=== PATIENT | male | born 1960 | race Caucasian/White ===

== ENCOUNTER → 2017-09-02 | Outpatient (CLI) | payer OTHER ==
[~2017-09-02] MED LIST: CELEBREX 200 M200 M1 PO; CENTRUM SILVER1 EAC4 PO; CIPROFLOXACIN500 M1 PO; CLEOCIN HCL300 MG PO; EMBEDA ER 50-21 EACH PO; FLEXERIL PO; FLOMAX0.4 MG PO; KADIAN50 MG; MOVANA300 MG PO; NORCO 5-325 TA1 EAC1 PO; PERCOCET 5-3251 EACH PO; PHENERGAN 25 MG25 M1 PO; TESTOSTERONE INJ; TORADOL 10 MG T10 MG PO; VALIUM5 MG PO; VICODIN; XANAX 1 MG TABLE1 MG PO; ZANAFLEX4 MG PO
[2017-09-02 14:11] LABS: HEMATOCRIT 54.4 % (42.0-52.0); HEMOGLOBIN 18.5 gm/dL (14.0-18.0); MCH 30.4 pg (26.0-34.0); MCV 89.4 fL (80.0-100.0); MPV 9.9 fl. (7.2-11.1); RBC 6.08 mil/uL (4.50-6.00); RDW-CV 13.6 % (10.5-14.5); WBC 7.5 thou/uL (4.0-11.0)
[2017-09-02 14:46] LABS: CALCIUM 9.4 mg/dL (8.5-10.1); CREATININE 1.1 mg/dL (0.6-1.3); POTASSIUM 4.4 mmol/L (3.5-5.1); TOTAL BILIRUBIN 0.7 mg/dL (<0.1-1.0); TOTAL PROTEIN 6.7 g/dL (6.4-8.2)
== END ==
LOC: M.LAB 13:54
PROVIDERS: Anesthesiology
DX: Z01.812 Encounter for preprocedural laboratory examination (principal)

== ENCOUNTER → 2017-09-05 | Outpatient (CLI) | payer OTHER ==
[~2017-09-05] VITALS: Ht 180.3 cm; Wt 104.3 kg
[2017-09-05 09:24] VITALS: BP 128/65
[2017-09-05 10:14] VITALS: BP 143/85
[2017-09-05 10:25] VITALS: BP 134/86
[2017-09-05 10:40] VITALS: BP 137/77
--- NOTE | 2017-09-05 10:45 | NUR ---
0915:PT. ARRIVED, MADE COMFORTABLE IN RECLINER. DISCUSSED PHLEBOTOMIES THAT PT. HAS HAD IN THE PAST, UPDATED HIS HEALTH HISTORY, AND TALKED ABOUT TODAY'S PLAN OF CARE. 0942: #18 GAUGE IV STARTED IN RT AC BY MICHEAL MUÑIZ RN-NO J LOOP USED- THIS RN ATTACHED TUBING AND PHLEBOTOMY BAG TO PT. IMMEDIATLEY-ALSO WITH 3 WAY STOPCOCK APPLIED (NS ATTACHED TO 3RD PORT). BLOOD FLOWING STEADILY INTO BAG. 0950:HAVING PT. SQUEEZE BALL RT HAND AND PERIODICALLY APPLYING TOURNIQUET OR BP CUFF PRN TO KEEP FLOW OF BLOOD COMING OUT STEADILY. PT. DID STATE AT THIS TIME HE FEELS SLIGHLTY NAUSEATED. SALTINE CRACKERS AND WATER GIVEN. 1000:NAUSEA A LITTLE LESS NOW. 1006:PHELBOTOMY COMPLETE, PULLING OFF 500 GRAMS OF BLOOD. PT. STILL SLIGHTLY NAUSEATED AND A LITTLE DIZZY. WILL MONITOR PT. HE CONTINUES TO TAKE SIPS OF WATER AND EAT CRACKERS. 1030:HH DRAWN OFF PERIPHERAL IV SITE RT. AC. PT. IS FEELING BETTER NOW- "JUST FEEL A LITTLE LIGHTHEADED", WILL CONTINUE TO ALLOW PT. TO REST IN RECLINER. VSS. 1045:PT. WANTS TO GO AND IS FEELING BETTER. ENCOURAGED HIM TO FOLLOW CARE NOTES INSTRUCTIONS RE:POST PHLEBOTOMY THAT WERE GIVEN--REST, DRINK EXTRA FLUIDS TODAY AND CALL IF ANY WORSENING DIZZINESS, ETC.-HE VOICED UNDERSTANDING. THIS RN AMBULATED WITH PT. TO FRONT ENTRANCE, PT. WITH STEADY GAIT AND HE AMBULATED TO HIS CAR.
[2017-09-05 12:33] LABS: HEMATOCRIT 53.4 % (42.0-52.0)
== END ==
LOC: M.INFUS 09:12
PROVIDERS: Nurse Practitioner Family
DX: D75.1 Secondary polycythemia (principal)

== ENCOUNTER → 2017-09-12 | Outpatient (CLI) | payer OTHER | LOC: M.CT 11:18 | DX: Z13.6 Encounter for screening for cardiovascular disorders (principal) ==

== ENCOUNTER → 2019-07-30 | Outpatient (CLI) | payer BC ==
[2019-07-30 12:02] VITALS: BP 125/73
[2019-07-30 12:40] VITALS: BP 117/66
[2019-07-30 12:52] LABS: HEMATOCRIT 52.7 % (42.0-52.0); HEMOGLOBIN 18.2 gm/dL (14.0-18.0)
--- NOTE | 2019-07-30 13:14 | NUR ---
ARRIVED AMBULATORY. MADE SELF COMFORTABLE. DENIES ADVERSE REACTION TO PRIOR PHLEBOTOMY. PROCEDURE COMPLETED AND TOELRATED WELL. DENIES QUESTION OR NEED AT DISCHARGE.
== END ==
LOC: M.INFUS 11:58
PROVIDERS: Nurse Practitioner Family
DX: D75.1 Secondary polycythemia (principal)

== ENCOUNTER → 2019-10-15 | Outpatient (CLI) | payer BC ==
[2019-10-15 13:15] VITALS: BP 123/75
[2019-10-15 13:58] VITALS: BP 125/78
[2019-10-15 14:10] LABS: HEMATOCRIT 54.9 % (42.0-52.0); HEMOGLOBIN 19.2 gm/dL (14.0-18.0)
== END ==
LOC: M.INFUS 13:10
PROVIDERS: Nurse Practitioner Family
DX: D75.1 Secondary polycythemia (principal)

== ENCOUNTER 2020-03-07 09:53 | Emergency (ER) | payer BC ==
[~2020-03-07] VITALS: Ht 180.3 cm; Wt 102.1 kg
[2020-03-07 11:08] LABS: ABSOLUTE LYMPHOCYTES 0.5 thou/uL (0.8-5.3); ABSOLUTE MONOCYTES 0.3 thou/uL (0.0-1.2); ABSOLUTE NEUTROPHILS 2.3 thou/uL (1.6-8.1); BASOPHILS 0.7 %; EOSINOPHILS 0.3 %; HEMOGLOBIN 17.8 gm/dL (14.0-18.0); LYMPHOCYTES 16.2 %; MCH 29.7 pg (26.0-34.0); MCHC 34.3 g/dL (28.0-37.0); MCV 86.6 fL (80.0-100.0); MONOCYTES 8.3 %; MPV 9.1 fl. (7.2-11.1); NUCLEATED RBCS 0 /100WBC; PLATELET COUNT* 93 thou/uL (150-400); POLYS 74.5 %
[2020-03-07 11:21] LABS: CALCIUM 8.6 mg/dL (8.5-10.1); CREATININE 1.1 mg/dL (0.6-1.3); POTASSIUM 3.6 mmol/L (3.5-5.1)
[2020-03-07 11:26] LABS: ALBUMIN 3.2 g/dL (3.4-5.0); TOTAL BILIRUBIN 0.7 mg/dL (<0.1-1.0)
[2020-03-07 11:57] VITALS: BP 135/87
--- NOTE | 2020-03-07 14:30 | EKG ---
[place] [address] ELECTROCARDIOGRAM REPORT Name: SCOTT LEIGH Room: [facility]#: [id number] Admission: 03/07/20 Attend Phys: Discharge: 03/07/20 Date of : 64 Date of Service: 03/07/20 1023 Report #: [id number] THIS REPORT FOR: //name// [facility] ED Test Date: 2020-03-07 Test Time: 10:23:39 Pat Name: SCOTT LEIGH Department: Room: Gender: Limo Driver: [facility] : 1960 Requested By: Balbir Petersen Order Number: [id number] MD: Jeronimo Snow Measurements Intervals [place] Rate: 76 P: 56 [place]: 154 QRS: 62 QRSD: 106 T: 8 QT: 350 QTc: 394 Interpretive Statements Sinus rhythm Compared to ECG 06/15/2015 20:51:32 No significant changes Electronically Signed On 03-07-2020 14:30:38 CDT by Jeronimo Snow [email or web address] <ELECTRONICALLY SIGNED> By: Jeronimo Snow MD, [facility] 03/07/20 1430 1023 1023 Jeronimo Snow MD, FACC /EPI
== END 2020-03-07 11:58 | disposition home or self-care (01) ==
LOC: M.ERS 09:53
PROVIDERS: Emergency Medicine Emergency Medical Services
DX: U07.1 COVID-19 (principal); Z96.642 Presence of left artificial hip joint; Z87.442 Personal history of urinary calculi; Z85.828 Personal history of other malignant neoplasm of skin

== ENCOUNTER 2020-03-11 04:22 | Inpatient (IN) | payer BC ==
[2020-03-11] VITALS (13 sets, daily range): BP systolic 115–172; BP diastolic 66–101
[~2020-03-11] VITALS: Ht 180.3 cm; Wt 100.1 kg
[~2020-03-11 04:22] MED LIST changes: -EMBEDA ER 50-21 EACH PO; +MORPHINE PO; +NALTREXONE PO; -NORCO 5-325 TA1 EAC1 PO; +NORCO 5-325 TA1 EAC2 PO
[2020-03-11 05:05] LABS: HEMATOCRIT 55.5 % (42.0-52.0); HEMOGLOBIN 18.8 gm/dL (14.0-18.0); MCH 29.2 pg (26.0-34.0); MCHC 33.9 g/dL (28.0-37.0); MCV 86.2 fL (80.0-100.0); MPV 8.6 fl. (7.2-11.1); NUCLEATED RBCS 0 /100WBC; PLATELET COUNT* 129 thou/uL (150-400); RBC 6.44 mil/uL (4.50-6.00); RDW-CV 13.9 % (10.5-14.5); WBC 7.7 thou/uL (4.0-11.0)
[2020-03-11 05:15] LABS: CALCIUM 8.3 mg/dL (8.5-10.1); CREATININE 0.9 mg/dL (0.6-1.3); POTASSIUM 3.9 mmol/L (3.5-5.1)
[2020-03-11 05:17] LABS: APTT 26.7 Seconds (25.0-31.3); INR 1.1; PROTIME 11.4 Seconds (9.20-11.50)
[2020-03-11 05:25] LABS: ALBUMIN 2.7 g/dL (3.4-5.0); TOTAL BILIRUBIN 1.2 mg/dL (<0.1-1.0); TOTAL PROTEIN 6.9 g/dL (6.4-8.2)
[2020-03-11 06:59] LABS: ABSOLUTE EOSINOPHILS 0.2 thou/uL (0.0-0.7); ABSOLUTE LYMPHOCYTES 0.5 thou/uL (0.8-5.3); ABSOLUTE MONOCYTES 0.5 thou/uL (0.0-1.2); ABSOLUTE NEUTROPHILS 6.5 thou/uL (1.6-8.1); PLATELET ESTIMATE ADEQUATE
--- NOTE | 2020-03-11 08:45 | NUR ---
PT'S ADMITING STATUS HAS CHANGED FROM TELE TO ICU. PT NOW WAITING FOR AVAILABLE ICU BED.
--- NOTE | 2020-03-11 09:00 | NUR ---
GINGER LEIGH, PT'S [phone]
--- NOTE | 2020-03-11 18:59 | NUR ---
DR RICHMOND NOTIFIED OF CONSULT. SEE ORDERS. WILL DO ROUNDS AT 2100. Norman PARIKH RN
[2020-03-11 19:40] LABS: BE -2.8 mmol/L (-2 to +3); PCO2 37.5 mmHg (35.0-45.0); PO2 61.8 mmHg (75.0-100.0)
--- NOTE | 2020-03-11 19:43 | NUR ---
END OF SHIFT NOTE: PT UP TO COMMODE X2 TO URINATE. UNABLE TO VOID AT THIS TIME. PT REPORTS HAS ALWAYS HAD TROUBLES W/ STARTING STREAM. HR 130'S AND O2 SAT DECREASED TO LOW 80'S WHEN UP TO COMMODE. A&O X4 BUT OCCASIONALLY FORGETFUL. HI SOFIA O2 INCREASED TO 10L WHILE UP TO COMMODE. LS COARSE/DIM. DENIES COUGH. SR WHEN AT REST. ST WHEN ANXIOUS AND W/ ACTIVITY. DID VOID IN ED PER REPORT. SMALL BM. REFUSING TO EAT. POOR PO INTAKE. ATTEMPTED TO OBTAIN IV ACCESS W/ 2 UNSUCCESSFUL ATTEMPTS. PT REQUEST TO "WAIT UNTIL LATER" FOR FURTHER ATTEMPTS. JLOOP PLACED ON LAC PIV. NS @ 100ML/HR. REFUSING SCDS. WASHED FACE. REFUSING MOUTH SWABS AND TO BRUSH TEETH. UPDATE VERBALIZED TO , GINGER. BED ALARM ON. Norman PARIKH RN.
[2020-03-12] VITALS (25 sets, daily range): BP systolic 100–129; BP diastolic 55–79
[2020-03-12 05:32] LABS: BE 0.1 mmol/L (-2 to +3); PCO2 41.1 mmHg (35.0-45.0); PO2 67.2 mmHg (75.0-100.0); pH 7.401 (7.340-7.450)
--- NOTE | 2020-03-12 05:32 | NUR ---
PT. PROGRESSING TOWARDS GOALS. GOULD CATHETER INSERTED THIS SHIFT. PT. SLEPT WELL AFTER ADMINISTRATION OF MEDICATIONS (SEE MAR) . WILL CONTINUE TO MONITOR.
[2020-03-12 08:39] LABS: MCH 29.2 pg (26.0-34.0); MCHC 33.9 g/dL (28.0-37.0); MCV 86.1 fL (80.0-100.0); RBC 5.7 mil/uL (4.50-6.00); RDW-CV 13.9 % (10.5-14.5); WBC 9.5 thou/uL (4.0-11.0)
[2020-03-12 08:42] LABS: HEMOGLOBIN 16.6 gm/dL (14.0-18.0)
[2020-03-12 08:51] LABS: CREATININE 0.9 mg/dL (0.6-1.3)
--- NOTE | 2020-03-12 12:12 | EKG ---
[place] [address] ELECTROCARDIOGRAM REPORT Name: SCOTT LEIGH Room: [address] .R.#: [id number] Admission: 03/11/20 Attend Phys: Rahel Prabhakar, Discharge: Date of : 64 Date of Service: 03/11/20 0428 Report #: [id number] THIS REPORT FOR: //name// [facility] ED Test Date: 2020-03-11 Test Time: 04:28:07 Pat Name: SCOTT LEIGH Department: Room: [facility] Gender: M Vessel Operator: : 1960 Requested By: Grzegorz Barnes Order Number: [id number] MD: Rolando Smith Measurements Intervals [place] Rate: 119 P: 55 [place]: 134 QRS: 92 QRSD: 102 T: -3 QT: 316 QTc: 445 Interpretive Statements Sinus tachycardia LAE, consider biatrial enlargement Borderline right axis deviation Borderline repolarization abnormality Baseline wander in lead(s) II,III,aVF,V1 Compared to ECG 03/07/2020 10:23:39 Sinus rhythm no longer present Electronically Signed On 03-12-2020 12:12:34 CDT by Rolando Smith [email or web address] <ELECTRONICALLY SIGNED> By: Agata Smith MD, FACC 03/12/20 1212 7 7 Agata Smith MD, [facility] /EPI
--- NOTE | 2020-03-12 13:00 | NUR ---
PT ANXIOUS AND TEARFUL "I AM GOING TO ". REASSURED PT THAT HE IS BEING MONITORED IN ICU AND IS A FULL CODE. PT STATES HE WILL WEAR BIPAP IS ANXIETY MEDS ARE GIVEN. ORDER FOR PRECEDEX GTT
--- NOTE | 2020-03-12 16:35 | NUR ---
RECEIVED MULTIPLE PHONE CALLS FROM SONS AND TODAY RE PT STATUS. UPDATED ON PLAN OF CARE. INSTRUCTED FAMILY TO DESIGNATE ONE PERSON TO CALL A DOZEN PHONE CALLS TAKE TIME FROM PT CARE. PT HAS PHONE AT BS. REINSTRUCTED NO VISITORS PT IS COVID POSITIVE. AND SON ALSO HAVE COVID.DISCUSSED [facility] RECCOMMENDATION OF QUARANTINE
--- NOTE | 2020-03-12 16:45 | NUR ---
PT RESTING IN BED. O2 SATS IN LOW 90S ON 10 HFC. BIPAP APPLIED THIS EVENING.PT ANXIOUS AND TEARFUL MOST OF SHIFT. PT INSTRUCTED ON NONMEDICINAL WAYS TO HELP ANXIETY. IVF CHANGED TO CLIMIMEX THIS AFTERNOON PT HAS POOR APPETITE. PO FLUIDS ENCOURAGED. ENCOURAGED PT TO HOLD OWN CUP AND PUSH CONTROLS ON HIS BED HE STATES HE IS UNABLE TO. ADEQUATE UO,DARK YELLOW URINE. PT REPOSTIIONS SELF WELL. PRECEDEX GTT STARTED THIS EVENING TO HELP WITH ANXIETY AND ALLOW BIPAP
[2020-03-12 16:47] LABS: URINE BILIRUBIN NEGATIVE (Negative); URINE BLOOD 3+ (Negative); URINE CLARITY CLEAR; URINE COLOR YELLOW; URINE GLUCOSE-RANDOM NEGATIVE (Negative); URINE KETONES 2+ (Negative); URINE LEUKOCYTES TRACE (Negative); URINE NITRITE NEGATIVE (Negative); URINE PROTEIN TRACE (Negative); URINE SPECIFIC GRAVITY 1.025 (1.005-1.030)
[2020-03-12 16:54] LABS: URINE RBC >20 Many /HPF (0-2); URINE WBC 0-5 Rare /HPF (0-5)
[2020-03-12 16:55] LABS: CASTS None Seen /LPF (None Seen); CRYSTALS None Seen /LPF (None Seen); SQUAMOUS NONE SEEN /LPF (0-3)
[2020-03-12 16:56] LABS: BACTERIA None Seen /HPF (None Seen); MUCUS None Seen strn/LPF (None Seen)
[2020-03-13] VITALS (16 sets, daily range): BP systolic 98–123; BP diastolic 55–78
--- NOTE | 2020-03-13 06:26 | NUR ---
ASSUMED PATIENT CARE AT 1900. PATIENT ALERT AND ORIENTED TIMES FOUR. PLACED ON BIPAP AT APPROX 2130 PATIENT WAS BREATHING BETWEEN 35-45 BPM AND O2 SATS WERE 87-88%. PATIENT ABLE TO TOLERATE BIPAP AND SLEPT WELL THROUGH T HE NIGHT. MINOR COMPLAINTS OF PAIN, CONTROLLED WITH ORAL PAIN MEDICATIONS. REMAINS IN COVID PRECAUTIONS. GOULD IN PLACE. RN ASSESSMENTS COMPLETED DOCUMENTED.
[2020-03-13 12:41] LABS: ABSOLUTE BASOPHILS 0.1 thou/uL (0.0-0.2); ABSOLUTE LYMPHOCYTES 0.5 thou/uL (0.8-5.3); ABSOLUTE MONOCYTES 0.5 thou/uL (0.0-1.2); ABSOLUTE NEUTROPHILS 8.3 thou/uL (1.6-8.1); BASOPHILS 1.4 %; EOSINOPHILS 0.1 %; HEMATOCRIT 47.8 % (42.0-52.0); HEMOGLOBIN 16.1 gm/dL (14.0-18.0); LYMPHOCYTES 5.1 %; MCH 29.5 pg (26.0-34.0); MCHC 33.8 g/dL (28.0-37.0); MCV 87.4 fL (80.0-100.0); MPV 9.2 fl. (7.2-11.1); NUCLEATED RBCS 0 /100WBC; PLATELET COUNT* 143 thou/uL (150-400); POLYS 88.4 %; RBC 5.47 mil/uL (4.50-6.00); RDW-CV 13.8 % (10.5-14.5); WBC 9.4 thou/uL (4.0-11.0)
--- NOTE | 2020-03-13 12:49 | NUR ---
THIS RN VERBALIZED UPDATE TO BOTH , GINGER, AND SON, FRANCISCO, VIA PHONE THIS AM. BOTH AND SON VERBALIZED UNDERSTANDING AND DENIED FURTHER QUESTIONS. Norman PARIKH RN
[2020-03-13 12:55] LABS: ALBUMIN 2.4 g/dL (3.4-5.0); CALCIUM 7.9 mg/dL (8.5-10.1); CREATININE 0.8 mg/dL (0.6-1.3); MAGNESIUM 2.3 mg/dL (1.8-2.4); PHOSPHORUS* 2.4 mg/dL (2.5-4.9); POTASSIUM 3.9 mmol/L (3.5-5.1); TOTAL BILIRUBIN 0.7 mg/dL (<0.1-1.0); TOTAL PROTEIN 6.1 g/dL (6.4-8.2)
--- NOTE | 2020-03-13 13:16 | NUR ---
ICU rounds: Covid positive since 03/07. On bipap. Precedex gtt. Pt resides at home with his , normally active and independent. No DME. No hx of HH or SNF. Following.
[2020-03-14] VITALS (18 sets, daily range): BP systolic 114–144; BP diastolic 58–83
--- NOTE | 2020-03-14 01:44 | NUR ---
PT. CATHETER NOT DRAINING. ATTEMPT TO IRRIGATE, UNABLE TO IRRIGATE. GOULD CATHETER DC'D, REPLACED WITH 18 LIBYAN WITH NO DIFFICULTY. DRAINING ADEQUATE AMOUNT OF URINE AT THIS TIME.
--- NOTE | 2020-03-14 04:45 | NUR ---
PT. REMAINS STABLE AT THIS TIME. BRADYCARDIC WHEN SLEEPING, PRECEDEX GTT REMAINS UNCHANGED. PT. HAD 2 EPISODES OF DIARRHEA, CDIFF ORDER OBTAINED AND STOOL SAMPLE SENT TO LAB. REMAINS COVID ISOLATION. PT. VERY CONCERNED THAT HE IS NOT IMPROVING. REASSURANCE GIVEN. WILL CONTINUE TO MONITOR.
[2020-03-14 05:58] LABS: HEMATOCRIT 52.1 % (42.0-52.0); HEMOGLOBIN 17.4 gm/dL (14.0-18.0); MCH 29.3 pg (26.0-34.0); MCHC 33.4 g/dL (28.0-37.0); MCV 87.7 fL (80.0-100.0); MPV 9.7 fl. (7.2-11.1); NUCLEATED RBCS 0 /100WBC; PLATELET COUNT* 152 thou/uL (150-400); RBC 5.94 mil/uL (4.50-6.00); RDW-CV 14.1 % (10.5-14.5); WBC 10.1 thou/uL (4.0-11.0)
[2020-03-14 06:15] LABS: PREALBUMIN 18.3 mg/dL (18.0-35.7)
[2020-03-14 06:17] LABS: ALBUMIN 2.6 g/dL (3.4-5.0); CALCIUM 8.2 mg/dL (8.5-10.1); POTASSIUM 3.7 mmol/L (3.5-5.1); TOTAL BILIRUBIN 1.1 mg/dL (<0.1-1.0); TOTAL PROTEIN 6.6 g/dL (6.4-8.2)
[2020-03-14 06:24] LABS: ABSOLUTE LYMPHOCYTES 0.7 thou/uL (0.8-5.3); ABSOLUTE MONOCYTES 0.4 thou/uL (0.0-1.2); PLATELET ESTIMATE ADEQUATE
[2020-03-14 06:25] LABS: ANISOCYTOSIS 1+; LARGE PLATELETS OCCASIONAL; POIKILOCYTOSIS 1+
--- NOTE | 2020-03-14 09:57 | NUR ---
RIGHT BASILIC VESSEL ACCESSED FOR 5 PARAGUAYAN TRIPLE LUMEN PICC. LINE PRE-TRIMMED TO 41CM AND ADVANCED TO THE ZERO CHRISTOPHER WITH NO RESISTANCE MET. UPPER ARM CIRCUMFERENCE ABOVE INSERTION SITE= 13 1/2". SHERLOCK MAGNET AND 3CG CONFIRMATION OF TIP TERMINATION AT THE CAVOATRIAL JUNCTION APPRECIATED. GUIDEWIRE REMOVED, LINE FLUSHED AND INSERTION SITE DRESSED. REPORT GIVEN TO HAN DANG.
--- NOTE | 2020-03-14 14:45 | NUR ---
ICU rounds: bipap prn. IVabx and steroids. DC salcedo. Precedex. covid positive.
--- NOTE | 2020-03-14 16:27 | NUR ---
PT UP TO BSC FOR BM. BIPAP REMAINED ON W/ SAME SETTINGS. X1 SM WATERY STOOL. WHILE SITTING ON COMMODE ASSISTED PT W/ WASHING UNDERARMS, JIL AREA, BUTTOCK, BACK, AND HANDS W/ SOAP AND WATER. BED PAD CHANGED. MEPILEX TO COCCYX. REFUSED LOTION AND DEODERANT. REFUSED WASHING OF HAIR AND SHAVE. ALSO REFUSED TO CHANGE SOCKS. PT TOLERATED TRANSFER AND SITTING ON COMMODE WELL W/O DESATURATION. WHEN BACK IN BED TRANSITIONED PT TO [facility] NC W/ HUMIDITY PER PT REQUEST. TOLERATING WELL AT THIS TIME. RR 16 AND O2 SAT 94%. Norman PARIKH RN
--- NOTE | 2020-03-14 18:56 | NUR ---
PT CURRENTLY SITTING UP IN BED W/ EYES CLOSED. REMAINS ON NC. TOLERATING WELL. INCREASED PRECEDEX TO 0.5 WHEN PT C/O ANXIETY. REMAINS A&OX4. MORE AWAKE T/O DAY. SR-SB ON MONITOR W/ OCC PACS AND PVCS. GENERALIZED EDEMA. +2 PULSES. LS DIMIN. COUGH PRODUCTIVE W/ SMALL AMOUNT THICK RUST COLORED SPUTUM. BIPAP ON SAME SETTINGS. 12L VIA NC WHEN OFF OF BIPAP. POOR APPETITE. DID DRINK ENSURE FOR LUNCH. REFUSING TO EAT. ORAL CARE-SWAB AND MOISTURIZER. TAKING PO FLUIDS WELL. PICC PLACED THIS AM BY IV NURSE. ALL PORTS FLUSHING W/ BLOOD RETURN. CONT D5W W/ 30MEQ KCL AND PRECEDEX. MULTIPLE UPDATES GIVEN TO VIA PHONE. Norman PARIKH RN
[2020-03-14 20:30] LABS: CALCIUM 7.8 mg/dL (8.5-10.1); MAGNESIUM 2.1 mg/dL (1.8-2.4); POTASSIUM 3.5 mmol/L (3.5-5.1)
[2020-03-15] VITALS (20 sets, daily range): BP systolic 103–142; BP diastolic 55–81
--- NOTE | 2020-03-15 02:47 | NUR ---
PATIENT HAS BEEN ANXIOUS THIS SHIFT ABOUT HIS BREATHING AND IS CONCERNED HE IS NOT IMPROVING. PATIENT IS NOW REFUSING TO WEAR THE BIPAP BELIEVING WHEN HE GOES ON, IT MEANS HE IS GETTING WORSE AND "IS GOING TO ". PATIENT REASSURED AGAINST THIS LINE OF THINKING, BUT STILL REFUSES TO WEAR BIPAP. PRECEDEX UP TO 0.8 MCG/KG. PATIENT BRADYCARDIC WHILE SLEEPING
[2020-03-15 04:35] LABS: ABSOLUTE BASOPHILS 0.1 thou/uL (0.0-0.2); ABSOLUTE LYMPHOCYTES 0.5 thou/uL (0.8-5.3); ABSOLUTE MONOCYTES 0.4 thou/uL (0.0-1.2); ABSOLUTE NEUTROPHILS 8.6 thou/uL (1.6-8.1); BASOPHILS 1.1 %; HEMATOCRIT 49.3 % (42.0-52.0); HEMOGLOBIN 16.5 gm/dL (14.0-18.0); LYMPHOCYTES 5.6 %; MCH 29.3 pg (26.0-34.0); MCHC 33.5 g/dL (28.0-37.0); MCV 87.2 fL (80.0-100.0); MPV 9.6 fl. (7.2-11.1); NUCLEATED RBCS 0 /100WBC; PLATELET COUNT* 138 thou/uL (150-400); POLYS 89.3 %; RBC 5.65 mil/uL (4.50-6.00); RDW-CV 13.9 % (10.5-14.5); WBC 9.6 thou/uL (4.0-11.0)
[2020-03-15 04:58] LABS: ALBUMIN 2.5 g/dL (3.4-5.0); CALCIUM 7.4 mg/dL (8.5-10.1); CREATININE 0.9 mg/dL (0.6-1.3); TOTAL BILIRUBIN 0.9 mg/dL (<0.1-1.0); TOTAL PROTEIN 5.9 g/dL (6.4-8.2)
--- NOTE | 2020-03-15 06:34 | NUR ---
ASSESSMENTS CHARTED. PATIENT REFUSING TO WEAR BIPAP FOR OXYGEN SUPPORT OVERNIGHT. REMAINS ANXIOUS ABOUT HIS CURRENT SITUATION. PRECEDEX TITRATED TO 0.7 MCG/KG. SEE TITRATION RECORD. UNABLE TO INCREASE FURTHER WITHOUT SIGNIFICANT DECREASE IN PATIENT'S HEART RATE. PATIENT STILL EXPERIENCING DIARRHEA. NO APPETITE BUT IS DRINKING WATER REGULARLY.
--- NOTE | 2020-03-15 14:57 | NUR ---
ICU rounds: Covid positive. On bipap. Up and out of bed, got cleaned up today.
[2020-03-15 18:27] LABS: CALCIUM 7.8 mg/dL (8.5-10.1); POTASSIUM 3.3 mmol/L (3.5-5.1)
--- NOTE | 2020-03-15 19:30 | NUR ---
LATE ENTRY: [id number] PT CURRENTLY LYING IN BED W/ EYES CLOSED W/ BIPAP ON. BIPAP SWITCHED TO AVAPS MODE @ 50% FIO2 BY RT THIS AFTERNOON. PT W/ INCREASED ANXIETY T/O DAY. CONCERNED ABOUT RESPIRATORY STATUS, REFUSING TO WEAR BIPAP AT TIMES, TEARFUL, AND REPORTS FRUSTRATION. THIS RN REASSURED PT MULTIPLE TIMES, VERBALIZED EDUCATON R/T BUT NOT LIMITED TO DZ PROCESS, BIPAP, MEDICATIONS, POC, PAIN TX, AND NONPHARMACOLOGICAL ALTERNATIVES FOR TX OF ANXIETY. PT REFUSES ALL OPTIONS OFFERED. STATED "I JUST CAN'T MOVE TODAY. I FEEL LIKE I'M DYING." O2 SAT AND RR REMAINED APPROPRIATE UNTIL AFTER TALKING ON PHONE W/ PRIOR TO RT TX. RR 30'S WHILE ON BIPAP. SAT 90'S. RT AWARE. SR ON MONITOR. EDEMA IMPROVED AFTER LASIX AND ALDACTONE DOSE. LS COARSE/DIM. ENCOURAGED IS-PT REFUSED. PRODUCING SMALL AMNT OF THICK RUST COLORED SPUTUM. REFUSED ORAL CARE T/O SHIFT-OFFERED MULTIPLE TIMES. GOULD TO D/D. CLEAR YELLOW URINE. SM WATERY STOOL THIS AM. REFUSED TO EAT ALL MEALS AND REFUSED ENSURE AND SNACKS WHEN OFFERED. ABLE TO DRINK WATER W/O DIFFICULTY. DENIES NAUSEA. REFUSED BATH BUT AGREEABLE TO JIL/CATHETER CARE. REFUSED TO CHANGE SOCKS AND ALL OTHER ADL'S/HYGIENE INTERVENTIONS. PRECEDEX INCREASED TO 0.9MCG/KG/HR. PRN HYDROCODONE ADMIN X1. UPDATE TO VIA PHONE X2. INFORMED TO FAX SHORT TERM DISABILITY FORMS TO UNIT FOR PRIMARY DR. Norman PARIKH, RN
[2020-03-16] VITALS (20 sets, daily range): BP systolic 100–151; BP diastolic 49–73
[2020-03-16 06:57] LABS: CREATININE 0.9 mg/dL (0.6-1.3); POTASSIUM 4.1 mmol/L (3.5-5.1)
--- NOTE | 2020-03-16 16:11 | NUR ---
ICU rounds: Covid positive. Bipap at NOC and Prn. On 8L, continue to wean. Precedex.
[2020-03-17] VITALS (19 sets, daily range): BP systolic 100–147; BP diastolic 43–74
[2020-03-17 06:40] LABS: HEMATOCRIT 51.2 % (42.0-52.0); HEMOGLOBIN 17.1 gm/dL (14.0-18.0); MCH 29.2 pg (26.0-34.0); MCHC 33.4 g/dL (28.0-37.0); MCV 87.7 fL (80.0-100.0); MPV 9.9 fl. (7.2-11.1); NUCLEATED RBCS 0 /100WBC; PLATELET COUNT* 130 thou/uL (150-400); RBC 5.84 mil/uL (4.50-6.00); RDW-CV 14.1 % (10.5-14.5)
[2020-03-17 06:49] LABS: ALBUMIN 2.3 g/dL (3.4-5.0); CALCIUM 8.2 mg/dL (8.5-10.1); MAGNESIUM 1.8 mg/dL (1.8-2.4); POTASSIUM 4.1 mmol/L (3.5-5.1); TOTAL BILIRUBIN 1.2 mg/dL (<0.1-1.0); TOTAL PROTEIN 5.8 g/dL (6.4-8.2)
[2020-03-17 07:42] LABS: ABSOLUTE MONOCYTES 0.4 thou/uL (0.0-1.2); ABSOLUTE NEUTROPHILS 9.6 thou/uL (1.6-8.1); PLATELET ESTIMATE ADEQUATE
--- NOTE | 2020-03-17 15:46 | NUR ---
ICU rounds: Tele status. Down to 15L HF NC. Improving.
[2020-03-17 16:18] LABS: APTT 26.2 Seconds (25.0-31.3); INR 1.1; PROTIME 11.4 Seconds (9.20-11.50)
--- NOTE | 2020-03-17 20:15 | NUR ---
A/OX4, OFTEN ANXIOUS. VSS. HGB >92% ON 15L HFNC, DESATS TO 88-90% WITH ACTIVITY. CTA TODAY SHOWED MULTIPLE PEs, DR SALAS AND JEOVANNY NOTIFIED. INCREASED LOVENOX GIVEN PER ORDERS. DR SALAS REQUESTED AGGRESSIVE TITRATION OFF PRECEDEX IF TOLERATED, SUPPLEMENTED WITH PRN XANAX. PRECEDEX OFF @ 1630. INCONTINENT OF LARGE LIQUID STOOL. COMPLETE BED BATH GIVEN, HAIR SHAMPOOED. PT UP TO CHAIR X2 TODAY FOR TOTAL OF 5.5 HOURS. UP TO BSC SEVERAL TIMES WITH LOOSE BMS, PRN IMMODIUM GIVEN ORDERED. DIFFICULTY EATING FOODS DUE TO RAW/DRY THROAT, PT INCREASES NUTRITION INTAKE VIA ENSURE SHAKES (2 TODAY) AND ENSURE PUDDING (4 TODAY). INTERMITTENT NAUSEA TREATED WITH ZOFRAN ORDERED. CALL LIGHT WITHIN REACH.
[2020-03-18] VITALS: BP 136/70
[2020-03-18 01:02] VITALS: BP 146/86
--- NOTE | 2020-03-18 03:30 | NUR ---
REPORT GIVEN TO LAURENCE HOLCOMB FOR CONTINUED CARE. PATIENT TO RM 232 ACCOMPANIED BY RN AND ON 15L O2 HIGH FLOW.
[2020-03-18 04:00] VITALS: BP 132/72
--- NOTE | 2020-03-18 04:18 | NUR ---
PT TRANSFERRED FROM ICU TO 232 @ ABOUT 0335. PT ALERT AND ORIENTED. VSS ON 15L HFNC. PT VOICED SOME ANXIETY. ORIENTED TO RM AND CALL LIGHT. ZOSYN CURRENTLY INFUSING. BRITTON PICC TRIPPLE LUMEN. FALL PRECAUTION IN PLACE. COVID-19 ISOLATION. WILL CONTINUE TO MONITOR.
[2020-03-18 05:48] LABS: ABSOLUTE LYMPHOCYTES 0.5 thou/uL (0.8-5.3); ABSOLUTE MONOCYTES 0.5 thou/uL (0.0-1.2); ABSOLUTE NEUTROPHILS 11.9 thou/uL (1.6-8.1); BASOPHILS 0.1 %; HEMATOCRIT 51.1 % (42.0-52.0); LYMPHOCYTES 4.2 %; MCH 29.4 pg (26.0-34.0); MCHC 33.3 g/dL (28.0-37.0); MCV 88.3 fL (80.0-100.0); MONOCYTES 3.9 %; MPV 10.6 fl. (7.2-11.1); NUCLEATED RBCS 0 /100WBC; PLATELET COUNT* 147 thou/uL (150-400); POLYS 91.8 %; RBC 5.79 mil/uL (4.50-6.00); RDW-CV 13.9 % (10.5-14.5)
[2020-03-18 06:09] LABS: ALBUMIN 2.4 g/dL (3.4-5.0); CALCIUM 8.3 mg/dL (8.5-10.1); POTASSIUM 3.9 mmol/L (3.5-5.1); TOTAL BILIRUBIN 1.4 mg/dL (<0.1-1.0); TOTAL PROTEIN 5.8 g/dL (6.4-8.2)
[2020-03-18 11:58] VITALS: BP 100/70
[2020-03-18 16:13] VITALS: BP 133/71
--- NOTE | 2020-03-18 17:25 | NUR ---
PT UP TO CHAIR TODAY AND TAKING IN GOOD PO. PT CONTINUALLY ASKING FOR PAIN MEDS AND SCRIPT GIRL LIGHT FREQUENTLY FOR NON EMRGENT MATTERS. WILL CONTINUE TO ASSESS.
[2020-03-18 20:00] VITALS: BP 138/77
[2020-03-19] VITALS: BP 102/57
[2020-03-19 04:00] VITALS: BP 139/76
--- NOTE | 2020-03-19 04:50 | NUR ---
ASSUMED CARE OF PT AFTER REPORT AT 1930. PT A&OX4. VSS. PHYSICAL ASSESSMENT COMPLETED AND CHARTED. PT ON O2 AT 10L HFNC. PT TRACING SR/ST/PVC ON TELE. PT COMPLAINED OF GENERALIZED BODY PAIN & DIARRHEA-MED GIVEN PAR JUL. MAINATAINED ON ENHANCED ISOLATION. CALL LIGHT WITHIN REACH.
[2020-03-19 10:10] LABS: ABSOLUTE LYMPHOCYTES 0.5 thou/uL (0.8-5.3); ABSOLUTE MONOCYTES 0.7 thou/uL (0.0-1.2); ABSOLUTE NEUTROPHILS 10.5 thou/uL (1.6-8.1); BASOPHILS 0.3 %; HEMATOCRIT 49.7 % (42.0-52.0); HEMOGLOBIN 16.3 gm/dL (14.0-18.0); LYMPHOCYTES 4.3 %; MCH 29.3 pg (26.0-34.0); MCHC 32.8 g/dL (28.0-37.0); MCV 89.3 fL (80.0-100.0); MONOCYTES 5.8 %; MPV 11.2 fl. (7.2-11.1); NUCLEATED RBCS 0 /100WBC; PLATELET COUNT* 154 thou/uL (150-400); POLYS 89.6 %; RBC 5.56 mil/uL (4.50-6.00); RDW-CV 14.3 % (10.5-14.5); WBC 11.8 thou/uL (4.0-11.0)
[2020-03-19 10:21] LABS: ALBUMIN 2.5 g/dL (3.4-5.0); TOTAL BILIRUBIN 1.4 mg/dL (<0.1-1.0); TOTAL PROTEIN 5.5 g/dL (6.4-8.2)
[2020-03-19 13:05] VITALS: BP 129/85
[2020-03-19 16:50] VITALS: BP 131/77
--- NOTE | 2020-03-19 17:40 | NUR ---
CONTINUE CURRENT CARE AND DISCONTINUE GOULD CATHETER. PT REQUESTING PAIN MEDS FREQUENTLY. OXYGEN TITRATED DOWN TO 6L. WILL CONTINUE TO ASSESS.
[2020-03-19 20:00] VITALS: BP 139/80
[2020-03-20 00:10] VITALS: BP 149/74
[2020-03-20 04:00] VITALS: BP 148/70
[2020-03-20 05:34] LABS: ABSOLUTE LYMPHOCYTES 0.5 thou/uL (0.8-5.3); ABSOLUTE NEUTROPHILS 10.8 thou/uL (1.6-8.1); BASOPHILS 0.2 %; HEMATOCRIT 48.1 % (42.0-52.0); HEMOGLOBIN 15.8 gm/dL (14.0-18.0); LYMPHOCYTES 3.8 %; MCH 29.2 pg (26.0-34.0); MCHC 32.9 g/dL (28.0-37.0); MCV 88.6 fL (80.0-100.0); MONOCYTES 8.4 %; MPV 10.7 fl. (7.2-11.1); NUCLEATED RBCS 0 /100WBC; PLATELET COUNT* 144 thou/uL (150-400); POLYS 87.6 %; RBC 5.43 mil/uL (4.50-6.00); RDW-CV 14.2 % (10.5-14.5); WBC 12.3 thou/uL (4.0-11.0)
--- NOTE | 2020-03-20 06:15 | NUR ---
ASSUMED CARE OF PT AFTER REPORT AT 1930. PT A&OX4. VSS. PHYSICAL ASSESSMENT COMPLETED AND CHARTED. PT O2 AT 3L NC PRN. PT TRACING SR/ST ON TELE. PT UPADLIB TO BSC. PT COMPLAINED OF GENERALIZED BODY PAIN-MED GIVEN PER MAR. MAINTAINED ON ENHANCED ISOLATION. CALL LIGHT WITHIN REACH.
[2020-03-20 06:45] LABS: ALBUMIN 2.4 g/dL (3.4-5.0); POTASSIUM 4.1 mmol/L (3.5-5.1); TOTAL BILIRUBIN 1.2 mg/dL (<0.1-1.0); TOTAL PROTEIN 5.6 g/dL (6.4-8.2)
[2020-03-20 08:10] VITALS: BP 131/76
[2020-03-20 12:00] VITALS: BP 108/74
--- NOTE | 2020-03-20 12:56 | NUR ---
CM INFORMED DURING PRIME ROUNDING OF THE PLAN OF CARE FOR THE PT INCLUDING PENDING PULM CONSULT. PT REMAINS ON IV ABT'S AND O2 @ 3L. PT INFORMS THAT HE HOPES TO RETURN HOME AT D/C WITH NO NEEDS. CM WILL REMAIN AVAILABLE TO ASSIST AND FOLLOW NEEDED.
[2020-03-20 16:00] VITALS: BP 132/69
--- NOTE | 2020-03-20 18:55 | NUR ---
RECEIVED REPORT. ASSUMED CARE OF PT AROUND 07. PT A&O X4. WANTS TO GO HOME. AM ASSESSMENT AND VITALS COMPLETED CHARTED. ELECTROPHYSIOLOGY SCIENTIST IN PLACE TRACING CHARTED. MEDS PER EMAR. PT TAKING HIMSELF OFF HIS OXYGEN SAYING "I'M WEANING MYSELF OFF O2 - I'M READY TO GO HOME". O2 SAT DOWN TO 85% ON RA THIS AM DURING ASSESSMENT. PT USING 3L PER NC PRN. EDUCATED ON NEED FOR OXYGEN AND TO WEAN OFF GRADUALY. PT HOPEFUL TO GO HOME TOMORROW, BUT CHEST XRAY WORSE TODAY IN [place]. PT CURRENTLY RESTING IN BEDSIDE CHAIR. CALL LIGHT IS WITHIN REACH. HOURLY ROUNDING PERFORMED. LOW FALL RISK PRECAUTIONS IN PLACE.
[2020-03-20 20:00] VITALS: BP 130/72
[2020-03-21] VITALS: BP 127/68
[2020-03-21 04:00] VITALS: BP 134/72
[2020-03-21 05:18] LABS: HEMATOCRIT 48.6 % (42.0-52.0); HEMOGLOBIN 16.1 gm/dL (14.0-18.0); MCH 29.3 pg (26.0-34.0); MCHC 33.1 g/dL (28.0-37.0); MCV 88.7 fL (80.0-100.0); MPV 10.9 fl. (7.2-11.1); NUCLEATED RBCS 0 /100WBC; PLATELET COUNT* 142 thou/uL (150-400); RBC 5.48 mil/uL (4.50-6.00); RDW-CV 14.5 % (10.5-14.5); WBC 12.6 thou/uL (4.0-11.0)
[2020-03-21 05:39] LABS: ALBUMIN 2.5 g/dL (3.4-5.0); CALCIUM 7.8 mg/dL (8.5-10.1); MAGNESIUM 2.3 mg/dL (1.8-2.4); TOTAL BILIRUBIN 1.2 mg/dL (<0.1-1.0); TOTAL PROTEIN 5.8 g/dL (6.4-8.2)
--- NOTE | 2020-03-21 06:03 | NUR ---
ASSUMED CARE OF PT AFTER REPORT AT 1930. PT A&OX4. VSS. PHYSICAL ASSESSMENT COMPLETED AND CHARTED. PT ON RA/3L NC PRN. SOB ON EXERTION NOTED. PT TRACING SR/PVC ON TELE. PT UPADLIB. PT COMPLAINED OF BACK PAIN-MED GIVEN PER MAR. CALL LIGHT WITHIN REACH. MAINTAINED ON ENHANCED ISOLATION.
[2020-03-21 07:19] LABS: ABSOLUTE NEUTROPHILS 10.6 thou/uL (1.6-8.1)
[2020-03-21 07:22] LABS: PLATELET ESTIMATE ADEQUATE
[2020-03-21 08:00] VITALS: BP 114/74
[2020-03-21] MEDS ORDERED: VENTOLIN HFA 1818 GM INH ×2 (11:26)
[2020-03-21] MEDS ORDERED: FLORASTOR250 MG PO ×2 (11:26)
[2020-03-21] MEDS ORDERED: FLAGYL500 M1 PO ×2 (11:26)
[2020-03-21] MEDS ORDERED: ELIQUIS5 MG PO ×3 (11:26)
[2020-03-21] MEDS ORDERED: NEXIUM40 MG PO ×2 (11:26)
[2020-03-21] MEDS ORDERED: LEVOFLOXACIN750 MG PO ×2 (11:29)
[2020-03-21 12:00] VITALS: BP 118/66
--- NOTE | 2020-03-21 14:21 | NUR ---
CM INFORMED OF THE PLAN OF CARE FOR THE PT INCLUDING PLAN TO D/C PT HOME TODAY WITH HOME OXYGEN AND ELIQUIS. CM INFORMED PT R.T. THAT THE PT REQUIRES 6L O2 WITH ACTIVITY AND NONE AT REST. CM FAXED REFERRAL TO [facility]. PT'S HOME OXYGEN PENDING INSURANCE APPROVAL. PT'S PHARMACY INFORMS THAT THE PT'S INSURANCE DOES NOT COVER ELIQUIS. CM PROVIDED PT'S PHARMACY WITH ELIQUIS $10 CO-PAY CARD. PT'S PHARMACY TO RETURN CALL TO CM TO DISUCSS IF CO-PAY CARD IS APPROVED. CM INFORMED PT OF ALL OF THE ABOVE INFO OVER THE PHONE. CM WILL UPDATE PT WHEN OXYGEN APPRIVED AND ARRIVES AT HOSPITAL AND WHEN PT'S ELIQUIS IS COVRED BY CO-PAY CARD. CM WILL REMAIN AVAILABLE TO ASSIST AND FOLLOW NEEDED.
[2020-03-21 14:54] VITALS: BP 114/74
[2020-03-21 15:13] VITALS: BP 114/74
--- NOTE | 2020-03-21 16:02 | NUR ---
PT OK FOR DISCHARGE.REST AND EXCERISE WITH RT COMPLETED.HOME O2 SET UP WITH [facility] AND RECEIVED IN ROOM.EMELY ARRANGED WITH CASE MANAGEMENT AND INSURANCE.DISCHARGE PAPERWORK COMPLETED.PRESCRIPTIONS ELECTRONICALLY SENT TO [facility] IN [place].RIGHT UPPER ARM PICC REMOVED-PRESSURE HELD FOR 10 MINUTES.LEFT FOREARM IV REMOVED.ALL PERSONAL BELONGINGS PACKED AND TAKEN WITH PT.PT WHEELED OUT BY NURSING STAFF TO PERSONAL VEHICLE.
--- NOTE | 2020-03-21 17:24 | NUR ---
PRIOR AUTH NEEDED FOR ELIQUIS PER PTS PHARMACY. PRIOR AUTH OBTAINED THROUGH [email or web address] CHAPIS LUNA CALLED PT.AT HOME TO TELL HIM MEDICATION WAS PRIOR AUTH'D .
== END 2020-03-21 16:10 | disposition home or self-care (01) | DRG 177 ==
LOC: M.ERS 04:22 → M.TBA-ER 05:05 → M.ICU 05:05 → M.TBA-ER 10:10 → M.ICU 14:24 → M.2W 03-18 03:36
PROVIDERS: Family Medicine; Internal Medicine; Internal Medicine Critical Care Medicine; Pediatrics; ADMIT Internal Medicine; ATTEND Internal Medicine
PROC: XW033E5 Introduction of Remdesivir Anti-infective into Peripheral Vein, Percutaneous Approach, New Technology Group 5 (ICD-10-PCS; principal; 2020-03-11)
PROC: 5A09357 Assistance with Respiratory Ventilation, Less than 24 Consecutive Hours, Continuous Positive Airway Pressure (ICD-10-PCS; 2020-03-12)
PROC: XW13325 Transfusion of Convalescent Plasma (Nonautologous) into Peripheral Vein, Percutaneous Approach, New Technology Group 5 (ICD-10-PCS; 2020-03-12)
PROC: 5A09357 Assistance with Respiratory Ventilation, Less than 24 Consecutive Hours, Continuous Positive Airway Pressure (ICD-10-PCS; 2020-03-13)
PROC: B548ZZA Ultrasonography of Superior Vena Cava, Guidance (ICD-10-PCS; 2020-03-14)
PROC: 02HV33Z Insertion of Infusion Device into Superior Vena Cava, Percutaneous Approach (ICD-10-PCS; 2020-03-14)
PROC: 5A09357 Assistance with Respiratory Ventilation, Less than 24 Consecutive Hours, Continuous Positive Airway Pressure (ICD-10-PCS; 2020-03-14)
PROC: 5A09357 Assistance with Respiratory Ventilation, Less than 24 Consecutive Hours, Continuous Positive Airway Pressure (ICD-10-PCS; 2020-03-15)
PROC: 5A09357 Assistance with Respiratory Ventilation, Less than 24 Consecutive Hours, Continuous Positive Airway Pressure (ICD-10-PCS; 2020-03-17)
DX: U07.1 COVID-19 (principal); J12.89 Other viral pneumonia; I21.A1 Myocardial infarction type 2; J96.01 Acute respiratory failure with hypoxia; I26.99 Other pulmonary embolism without acute cor pulmonale; E87.0 Hyperosmolality and hypernatremia; G89.29 Other chronic pain; D75.1 Secondary polycythemia; R00.1 Bradycardia, unspecified; R25.1 Tremor, unspecified; E88.89 Other specified metabolic disorders; R73.9 Hyperglycemia, unspecified; E87.8 Other disorders of electrolyte and fluid balance, not elsewhere classified; Z96.642 Presence of left artificial hip joint; Z98.1 Arthrodesis status; Z85.828 Personal history of other malignant neoplasm of skin; Z79.899 Other long term (current) drug therapy; Z28.21 Immunization not carried out because of patient refusal

== ENCOUNTER 2020-03-22 12:31 | Emergency (ER) | payer BC, OTHER ==
[~2020-03-22] VITALS: Ht 180.3 cm; Wt 91.2 kg
[~2020-03-22 12:31] MED LIST changes: +ELIQUIS5 MG PO; +FLAGYL500 M1 PO; +FLORASTOR250 MG PO; +LEVOFLOXACIN750 MG PO; +NEXIUM40 MG PO; +VENTOLIN HFA 1818 GM INH
[2020-03-22 12:59] LABS: HEMATOCRIT 49.3 % (42.0-52.0); HEMOGLOBIN 16.2 gm/dL (14.0-18.0); MCH 29.4 pg (26.0-34.0); MCHC 32.9 g/dL (28.0-37.0); MCV 89.4 fL (80.0-100.0); MPV 9.6 fl. (7.2-11.1); NUCLEATED RBCS 0 /100WBC; PLATELET COUNT* 136 thou/uL (150-400); RBC 5.51 mil/uL (4.50-6.00); RDW-CV 14.6 % (10.5-14.5); WBC 15.7 thou/uL (4.0-11.0)
[2020-03-22 13:11] LABS: APTT 27.2 Seconds (25.0-31.3); INR 1.2; PROTIME 12.6 Seconds (9.20-11.50)
[2020-03-22 13:13] LABS: CREATININE 0.9 mg/dL (0.6-1.3); POTASSIUM 3.7 mmol/L (3.5-5.1)
[2020-03-22 13:27] LABS: ALBUMIN 2.4 g/dL (3.4-5.0); CK-MB MASS 1.3 ng/mL (<0.5-3.6); MAGNESIUM 2.1 mg/dL (1.8-2.4); TOTAL BILIRUBIN 1.2 mg/dL (<0.1-1.0); TOTAL PROTEIN 6.1 g/dL (6.4-8.2)
[2020-03-22 14:00] LABS: ABSOLUTE LYMPHOCYTES 1.7 thou/uL (0.8-5.3); ABSOLUTE MONOCYTES 1.7 thou/uL (0.0-1.2); ABSOLUTE NEUTROPHILS 12.2 thou/uL (1.6-8.1)
[2020-03-22 14:01] LABS: PLATELET ESTIMATE DECREASED
[2020-03-22 14:03] LABS: LARGE PLATELETS FEW
[2020-03-22 14:16] VITALS: BP 111/74
--- NOTE | 2020-03-22 17:22 | EKG ---
[place] [address] ELECTROCARDIOGRAM REPORT Name: SCOTT LEIGH Room: [facility]#: [id number] Admission: 03/22/20 Attend Phys: Discharge: 03/22/20 Date of : 64 Date of Service: 03/22/20 1237 Report #: [id number] THIS REPORT FOR: //name// [facility] ED Test Date: 2020-03-22 Test Time: 12:37:24 Pat Name: SCOTT LEIGH Department: Room: Gender: Tester Equipment: TRENA : 1960 Requested By: Grzegorz Barnes Order Number: [id number] MD: Hemant Alcaraz Measurements Intervals [place] Rate: 113 P: 39 [place]: 122 QRS: 53 QRSD: 102 T: 28 QT: 340 QTc: 467 Interpretive Statements Sinus tachycardia Probable left atrial enlargement Possible right atrial enlargement Borderline T wave abnormalities Compared to ECG 03/11/2020 04:28:07 T-wave abnormality now present Electronically Signed On 03-22-2020 17:22:22 CORPORATE QUALITY ASSURANCE MANAGER by Hemant Alcaraz [email or web address] <ELECTRONICALLY SIGNED> By: Hemant Alcaraz MD, FACC 03/22/20 1722 1237 1237 Hemant Alcaraz MD, FACC /EPI
== END 2020-03-22 14:17 | disposition home or self-care (01) ==
LOC: M.ERS 12:31
PROVIDERS: Family Medicine
DX: R07.89 Other chest pain (principal); Z20.828 Contact with and (suspected) exposure to other viral communicable diseases; Z96.642 Presence of left artificial hip joint; Z87.442 Personal history of urinary calculi

== ENCOUNTER → 2020-04-10 | Outpatient (CLI) | payer OTHER | LOC: M.RAD 10:06 | PROVIDERS: ATTEND Nurse Practitioner Family | DX: J18.9 Pneumonia, unspecified organism (principal) ==

== ENCOUNTER → 2020-04-24 | Outpatient (CLI) | payer OTHER | LOC: M.RAD 08:10 | PROVIDERS: ATTEND Nurse Practitioner Family | DX: J18.9 Pneumonia, unspecified organism (principal); U07.1 COVID-19 ==

== ENCOUNTER → 2020-06-13 | Outpatient (CLI) | payer OTHER ==
--- NOTE | 2020-06-13 14:47 | 2DMMODE ---
[place] [address] 2 D/M-MODE ECHOCARDIOGRAM Name: SCOTT LEIGH Room: [facility]#: [id number] Admission: 06/13/20 Attend Phys: Rachid Paz MD Discharge: Date of : 64 Date of Service: 06/13/20 1446 Report #: [id number] THIS REPORT FOR: cc: Johnson Taylor Robin L. FNP Liston, Michael J. MD [facility] ~ APPROVED REPORT Study performed: 06/13/2020 13:51:20 EXAM: Comprehensive 2D, Doppler, and color-flow Echocardiogram Patient Location: Out-Patient BSA: 2.12 HR: 85 bpm BP: 130/80 mmHg Other Information Study Quality: Good Indications Dyspnea 2D Dimensions IVSd: 10.47 (7-11mm) LVOT Diam: 20.78 (18-24mm) LVDd: 47.15 mm PWd: 10.08 (7-11mm) Ascending Ao: 25.06 (22-36mm) LVDs: 30.05 (25-40mm) Aortic Root: 30.93 mm Volumes Left Atrial Volume (Systole) LA ESV Index: 16.70 mL/m2 Aortic Valve AoV Peak Sean.: 1.45 m/s AO Peak Gr.: 8.46 mmHg LVOT Max P.07 mmHg AO Mean Gr.: 4.43 mmHg LVOT Mean P.60 mmHg LVOT Max V: 1.23 m/s AO V2 VTI: 27.88 cm LVOT Mean V: 0.72 m/s PEACE (VTI): 2.82 cm2 LVOT V1 VTI: 23.15 cm Mitral Valve E/A Ratio: 1.18 [place] [address] 2 D/M-MODE ECHOCARDIOGRAM Name: SCOTT LEIGH Room: [facility]#: [id number] Admission: 06/13/20 Attend Phys: Rachid Paz MD Discharge: Date of : 64 Date of Service: 06/13/20 1446 Report #: [id number] MV Decel. Time: 194.76 ms MV E Max Sean.: 0.87 m/s MV PHT: 56.48 ms MVA (PHT): 3.90 cm2 TDI E/Lateral E': 5.44 E/Medial E': 8.70 Medial E' Sean.: 0.10 m/s Lateral E' Sean.: 0.16 m/s Pulmonary Valve PV Peak Sean.: 1.25 m/s PV Peak Gr.: 6.28 mmHg Tricuspid Valve RAP Estimate: 5.00 mmHg TR Peak Gr.: 25.73 mmHg RVSP: 30.73 mmHg PA Pressure: 30.73 mmHg Left Ventricle The left ventricle is normal size. There is normal LV segmental wall motion. There is normal left ventricular wall thickness. Left ventricular systolic function is normal. LVEF is 55-60%. Transmitral Doppler flow pattern suggests impaired LV relaxation. Right Ventricle The right ventricle is normal size. The right ventricular systolic function is normal. Atria The left atrium size is normal. The right atrium size is normal. Aortic Valve The aortic valve is normal in structure. No aortic regurgitation is present. There is no aortic valvular stenosis. Mitral Valve The mitral valve is normal in structure. There is no mitral valve regurgitation noted. No evidence of mitral valve stenosis. Tricuspid Valve The tricuspid valve is normal in structure. Mild tricuspid regurgitation. No pulmonary hypertension. Pulmonic Valve The pulmonary valve is normal in structure. [place] [address] 2 D/M-MODE ECHOCARDIOGRAM Name: CRISTIN LEIGHLISS Hubbard Room: [facility]#: [id number] Admission: 06/13/20 Attend Phys: Rachid Paz MD Discharge: Date of : 64 Date of Service: 06/13/20 1446 Report #: [id number] valvular regurgitation. Great Vessels The aortic root is normal in size. IVC is normal in size and collapses >50% with inspiration. Pericardium There is no pericardial effusion. <Conclusion> The left ventricle is normal size. There is normal left ventricular wall thickness. Left ventricular systolic function is normal. LVEF is 55-60%. Transmitral Doppler flow pattern suggests impaired LV relaxation. There is normal LV segmental wall motion. Mild tricuspid regurgitation. No pulmonary hypertension. IVC is normal in size and collapses >50% with inspiration. <ELECTRONICALLY SIGNED> By: Hemant Alcaraz MD, FACC 06/13/20 1446 1446 1446 Hemant Alcaraz MD, FACC /INF
[2020-06-13 14:58] LABS: CREATININE 0.9 mg/dL (0.6-1.3)
--- NOTE | 2020-06-27 18:54 | PF ---
[address] [address] PULMONARY FUNCTION REPORT Name: REESESC[place] Stevie Room: [facility]#: [id number] Admission: 06/13/20 Attend Phys: Rachid Paz MD Discharge: Date of : 64 Report #: [id number] THIS REPORT FOR: cc: Johnson Taylor Robin L. FNP ~ Rachid Paz MD DATE OF SERVICE: 06/13/2020 The FEV1/FVC ratio is normal at 78%, but the FVC is decreased to 76% and the FEV1 is also decreased to 78%. The [id number] interestingly is normal at 87%. After the administration of a bronchodilator, there is no significant change in any of these values. The patient's post-bronchodilator FEV1 is noted to be 3 liters. The total lung capacity is normal at 104% with a residual volume increased to 158%. The DLCO as adjusted for hemoglobin is decreased to 50%. IMPRESSION: 1. There is a restrictive pattern on spirometry, but restriction is not detected by lung volumes. In fact, there is hyperinflation on lung volumes and the residual volume is increased to 158%. The likely etiology of this is underlying mild obstruction without evidence of reversibility. 2. The DLCO as adjusted for hemoglobin decreased to 50%. <ELECTRONICALLY SIGNED> By: Rachid Paz MD 06/27/20 1854 [id number] MD sheryl Gutierrez
== END ==
LOC: M.CT 05-04 16:11 → M.PUL 12:40 → M.CT 15:00
PROVIDERS: ATTEND Internal Medicine Critical Care Medicine
DX: J98.11 Atelectasis (principal); I26.99 Other pulmonary embolism without acute cor pulmonale; R91.8 Other nonspecific abnormal finding of lung field; Z87.891 Personal history of nicotine dependence

== ENCOUNTER → 2020-07-27 | Outpatient (CLI) | payer OTHER ==
--- NOTE | 2020-08-20 23:43 | SLEEP ---
[address] [address] SLEEP STUDY REPORT Name: SCOTT LEIGH Room: [facility]#: [id number] Admission: 07/27/20 Attend Phys: Rachid Paz MD Discharge: Date of : 64 Report #: [id number] THIS REPORT FOR: cc: Rachid Paz MD,Rachid Paz,Rachid JONES ~ This study has been reviewed in its entirety by a board certified sleep specialist DATE OF SERVICE: 07/27/2020 SLEEP STUDY DATE OF SLEEP STUDY: 07/27/2020. INDICATION FOR SLEEP STUDY: Excessive daytime sleepiness/hypersomnia with a history of narcotic use. INTERPRETATION: Total duration of the study is 478 minutes out of which he was asleep for 399 minutes with an overall sleep efficiency of 84%. Sleep onset occurred 6 minutes after lying down in bed and REM onset was rapid occurring 9 minutes after lying down in bed and only 3.5 minutes after sleep onset. N1 sleep duration is 2%, N2 duration is 61%, N3 duration is 9%, and REM duration is 28%. This is a split night sleep study. During the initial part of the sleep study, the patient was not on positive airway pressure therapy for 136 minutes, this included 126 minutes of sleep time, which in fact included 30 minutes of REM sleep. During this diagnostic portion of the sleep study, the patient had a large number of sleep related respiratory events. These included 18 central apneas in addition to 2 obstructive apneas and 56 hypopneas and 1 respiratory effort related arousals. The patient's overall apnea-hypopnea index is 40.2 consistent with severe central as well as obstructive sleep apnea. Note that a majority of the events are of central origin body position data indicates that the entire duration of time during the diagnostic portion of the sleep study was in the supine position. Mean heart rate was 64, periodic limb movement index was 13.0 with a periodic limb movement index with arousals being 0.5. Arousal index overall was elevated to 22. We did record multiple desaturations. The patient overall spent 12 minutes below an O2 saturation of 90% during the diagnostic portion of the sleep study, out of which 9 minutes were spent below an O2 saturation of 88%. [place] [address] SLEEP STUDY REPORT Name: SCOTT LEIGH Room: [facility]#: [id number] Admission: 07/27/20 Attend Phys: Rachid Paz MD Discharge: Date of : 64 Report #: [id number] The patient was subsequently placed on a CPAP and was titrated on a CPAP for 342 minutes, this included 284 minutes of sleep time, which in turn included 83 minutes of REM sleep. The patient's mean heart rate was now 72. Periodic limb movement index was essentially normalized to 5.1, arousal index was now 20.7. Review of the CPAP titration indicates the patient was titrated beginning with a CPAP pressure of 5 cm of water, gradually increasing it to 9 cm of water. The patient did have a favorable response to CPAP therapy and marked improvement was noted with an apnea-hypopnea index improving to 2.1, on a CPAP pressure of 9 cm of water. Slightly lower apnea-hypopnea index was noted at the CPAP pressure of 8 cm of water and O2 saturation was adequately maintained on both of these CPAP pressures. We did observe REM supine sleep on both the CPAP of 8 and 9 cm of water. IMPRESSION: 1. Severe central and obstructive sleep apnea with an apnea-hypopnea index of 40.2. The patient is noted to be lying supine throughout the diagnostic portion of the sleep study. There is also nocturnal hypoxemia noted as described above with the patient spending 11.9 minutes below an O2 saturation of 90% during the diagnostic portion of the sleep study. 2. Despite the fact that the majority of the sleep related respiratory events during the diagnostic portion of the sleep study appeared to be of central origin. There in fact is very good response to CPAP therapy and there are only rare sleep related respiratory events recorded on a CPAP pressure of 8-9 cm of water. O2 saturation is also adequately maintained. It is noted that the patient does have a history of chronic narcotic use whether the patient was not under the influence of narcotic at the time of the sleep study is not known to me. 3. Sleep Onset REM is noted, 3.5 minutes after sleep onset RECOMMENDATIONS: 1. Would recommend proceeding to placing the patient on a CPAP of 8 cm of water with heated humidity and mask per patient preference while asleep. During this sleep study and AirFit N20 nasal mask, size medium with C-Flex of 2 was used. 2. Proceeding with a setting of CPAP as there appears to be a good response to this despite majority of the events being central origin during the diagnostic portion of the sleep study, however, in case the patient does not do well with a CPAP and for this reason, I will have a very low threshold of bringing the patient back to the Sleep Lab and proceeding with a BiPAP titration. Also in case, the patient had not used any narcotics prior to the sleep study, then if he was to use narcotics, then he may develop central sleep apnea, which may not be controlled with CPAP. We will therefore try to find out whether the patient had used his usual narcotics before the sleep study or not. 3. Reduction in use of narcotics will be of benefit if clinically feasible. [facility] [address] [place] [address] SLEEP STUDY REPORT Name: SCOTT LEIGH Room: [facility]#: [id number] Admission: 07/27/20 Attend Phys: Rachid Paz MD Discharge: Date of : 64 Report #: [id number] 4. Will assess regarding possible etiologies of Sleep Onset REM at his next office visit 5. Recommend avoiding driving or other activities requiring vigilance if drowsy. This entire sleep study was reviewed by a board certified sleep physician. <ELECTRONICALLY SIGNED> By: Rachid Paz MD 08/20/20 [id number] Paz MD /nt
== END ==
LOC: M.SLEEPLAB 06-16 20:00
PROVIDERS: ATTEND Internal Medicine Critical Care Medicine
DX: G47.33 Obstructive sleep apnea (adult) (pediatric) (principal); G47.34 Idiopathic sleep related nonobstructive alveolar hypoventilation; G47.10 Hypersomnia, unspecified; F11.90 Opioid use, unspecified, uncomplicated; D75.1 Secondary polycythemia

== ENCOUNTER 2020-08-22 21:11 | Observation (INO) | payer OTHER ==
[~2020-08-22] VITALS: Ht 180.3 cm; Wt 88.9 kg
--- NOTE | ~2020-08-22 | OP ---
[address] [address] OPERATIVE REPORT Name: SCOTT LEIGH Room: [address] Shawanda Raza#: [id number] Admission: 08/22/20 Attend Phys: Mejia Palma Discharge: 08/24/20 Date of : 64 Report #: [id number] THIS REPORT FOR: cc: Johnson Taylor Robin L. FNP Haggard, Kent L MD ~ PREOPERATIVE DIAGNOSES: A 10-mm mid left ureteral stone and nonobstructing right lower pole renal calculi. POSTOPERATIVE DIAGNOSIS: A 10-mm mid left ureteral stone and nonobstructing right lower pole renal calculi. PROCEDURES: Cystoscopy, left retrograde pyelogram, left ureteroscopy, left ureteral stent placement. STAFF SURGEON: Thomas Hughes MD. NECK BAND MAKER: None. ANESTHESIA: General. ESTIMATED BLOOD LOSS: Trace. COMPLICATIONS: None. SPECIMEN: None. DRAINS: A ____ x 6-Ukrainian left ureteral stent. INDICATIONS: The patient is a 59-year-old white male with history of kidney stones, presented with left flank pain. CT scan confirmed a 10-mm mid left ureteral stone with proximal hydronephrosis along with 2-nonobstructing right lower pole renal calculi. He was counseled regarding treatment options and elected for definitive cystoscopy, left retrograde pyelogram, left ureteroscopy, possible holmium laser lithotripsy, possible placement of left ureteral stent. After the risks and benefits of the procedure were explained, an informed consent was obtained. DESCRIPTION OF PROCEDURE: The patient was taken to the operating room, comfortably placed in the dorsal lithotomy position under adequate general anesthesia. He was sterilely prepped and draped in standard fashion exposing only the genitalia. He received his antibiotic therapy as prescribed. An appropriate time-out was carried out and all were in agreement. A 22-Ukrainian cystoscope was placed in the urethra. Anterior urethra was normal. Sphincter was intact. Prostate showed some bilobar prostatic hyperplasia with visual obstruction. Bladder was systematically viewed[place] [address] OPERATIVE REPORT Name: SCOTT LEIGH [address] [id number] Admission: 08/22/20 Attend Phys: Mejia Palma Discharge: 08/24/20 Date of : 64 Report #: [id number] identified normal. No bladder calculi was seen or foreign body observed. Mucosa was smooth without any irregularity. A 5-Ukrainian open-ended ureteral catheter was placed in the left ureteral orifice. Retrograde pyelogram was performed showing kind of a narrow caliber ureter up to a calcification within the left ureter about the L3 level with some dilation more proximally, was able to manipulate 0.035 Glidewire up the left ureter to the level of the kidney. The cystoscope was then removed and a 4.5-Ukrainian tapered to 6-6.5 Ukrainian semirigid ureteroscope was advanced through the urethra, attempted to go up the left ureter, but really it was kind of too narrowed to get into the ureteral orifice. The ureteroscope was then removed and backloaded over the guidewire and then with gentle rocking back and forth was able to negotiate through the transmural ureter and actually slowly advanced all the way up until we could actually get a glimpse of the stone. Over the wire, it was cut more medial in the tip of the scope to at least make an attempt to see what it would look like with shock with the cystoscope itself. Leaving the guidewire in place, ureteroscope was then backloaded off the guidewire. The ureteroscope was placed back to the urethra up, gently placed up the left ureter, was able to go all the way up to the mid ureter, but could not quite reach the stone and it looked too more medial compared to where the scope was, so we could not get a direct look at it through the laser. The semirigid scope was slowly removed and the cystoscope was backloaded over the guidewire and a ____ x 6-Ukrainian ureteral stent was put in position with good coil in the left renal pelvis and good coil in the bladder, this was all in the left. Confirmatory x-rays were taken to confirm good location of the stent. The bladder was drained, cystoscope was removed. He tolerated this treatment well. He was extubated in the operating room, transferred to [facility] with assistance and went to recovery in stable condition. If he tolerates the stent, stone is pretty easily seen. He is a candidate for ESWL. If he does not tolerate the stent, he can come back for cystoscopy, left stent removal, left ureteroscopy with holmium laser lithotripsy and stone extraction. The right lower pole stones were very easy to see and he is a good candidate for ESWL. By: [id number] Jean-Paul Hughes MD /james
[2020-08-22] MEDS ORDERED: KADIAN PO (21:27)
[2020-08-22 21:29] VITALS: BP 127/66
[2020-08-22 21:46] LABS: URINE BILIRUBIN NEGATIVE (Negative); URINE BLOOD 2+ (Negative); URINE CLARITY CLEAR; URINE COLOR YELLOW; URINE GLUCOSE-RANDOM NEGATIVE (Negative); URINE KETONES NEGATIVE (Negative); URINE LEUKOCYTES-REFLEX NEGATIVE (Negative); URINE NITRITE-REFLEX NEGATIVE (Negative); URINE PROTEIN NEGATIVE (Negative); URINE UROBILINOGEN 0.2 E.U./dl (0.2-1.0)
[2020-08-22 21:55] LABS: ABSOLUTE EOSINOPHILS 0.1 thou/uL (0.0-0.7); ABSOLUTE LYMPHOCYTES 1.1 thou/uL (0.8-5.3); ABSOLUTE MONOCYTES 0.6 thou/uL (0.0-1.2); ABSOLUTE NEUTROPHILS 5.9 thou/uL (1.6-8.1); BASOPHILS 0.5 %; EOSINOPHILS 1.2 %; HEMOGLOBIN 16.3 gm/dL (14.0-18.0); LYMPHOCYTES 14.3 %; MCH 29.5 pg (26.0-34.0); MCV 86.8 fL (80.0-100.0); MONOCYTES 7.7 %; MPV 9.2 fl. (7.2-11.1); NUCLEATED RBCS 0 /100WBC; PLATELET COUNT* 153 thou/uL (150-400); POLYS 76.3 %; RBC 5.54 mil/uL (4.50-6.00); RDW-CV 13.8 % (10.5-14.5); WBC 7.7 thou/uL (4.0-11.0)
[2020-08-22 22:01] LABS: CALCIUM 9.1 mg/dL (8.5-10.1); CREATININE 1.1 mg/dL (0.6-1.3)
[2020-08-22 22:10] LABS: CASTS None Seen /LPF (None Seen); SQUAMOUS 0-3 Few /LPF (0-3)
[2020-08-22 22:11] LABS: BACTERIA-REFLEX None Seen /HPF (None Seen); CRYSTALS None Seen /LPF (None Seen); URINE WBC-REFLEX 0-5 Rare /HPF (0-5)
[2020-08-22 23:41] VITALS: BP 101/71
[2020-08-23 00:30] VITALS: BP 126/52
[2020-08-23 01:00] VITALS: BP 114/47
[2020-08-23 06:00] VITALS: BP 94/37
[2020-08-23 07:50] VITALS: BP 114/63
[2020-08-23 11:07] LABS: CALCIUM 8.9 mg/dL (8.5-10.1); CREATININE 0.9 mg/dL (0.6-1.3)
[2020-08-23 11:11] LABS: MAGNESIUM 2.1 mg/dL (1.8-2.4); PHOSPHORUS* 2.6 mg/dL (2.5-4.9)
[2020-08-23 13:06] LABS: PROTIME 10.8 Seconds (9.20-11.50)
[2020-08-23 20:00] VITALS: BP 109/46
[2020-08-24 05:23] LABS: APTT 26.9 Seconds (25.0-31.3); PROTIME 10.7 Seconds (9.20-11.50)
[2020-08-24 05:29] LABS: CALCIUM 8.9 mg/dL (8.5-10.1); POTASSIUM 3.7 mmol/L (3.5-5.1)
[2020-08-24 09:00] VITALS: BP 128/71
[2020-08-24] MEDS ORDERED: NORCO5 PO (15:11)
[2020-08-24 15:56] VITALS: BP 128/71
[2020-08-24 16:05] VITALS: BP 114/62
[2020-08-24 18:13] VITALS: BP 128/71
== END 2020-08-24 17:45 | disposition home or self-care (01) ==
LOC: M.ERS 21:11 → M.ORTHSURG 22:52 → M.TBA-ER 22:52 → M.ERS 23:41 → M.2W 08-23 00:36 → M.ORTHSURG 08-23 07:45
PROVIDERS: Emergency Medicine; Physician Assistant; ADMIT Internal Medicine; ATTEND Internal Medicine
DX: N13.2 Hydronephrosis with renal and ureteral calculous obstruction (principal); Z20.822 Contact with and (suspected) exposure to COVID-19; F41.9 Anxiety disorder, unspecified; M19.90 Unspecified osteoarthritis, unspecified site; Z87.891 Personal history of nicotine dependence; Z79.899 Other long term (current) drug therapy

== ENCOUNTER 2020-12-05 17:59 | Emergency (ER) | payer OTHER ==
[~2020-12-05] VITALS: Ht 180.3 cm; Wt 102.1 kg
[~2020-12-05 17:59] MED LIST changes: +KADIAN PO; +NORCO5 PO
[2020-12-05] MEDS ORDERED: TIZANIDINE HCL4 M1 PO (18:11)
[2020-12-05] MEDS ORDERED: VITAMIN D310 MC1 PO (18:12)
[2020-12-05] MEDS ORDERED: ANDRODERM1 EAC3 (18:12)
[2020-12-05 20:22] LABS: ABSOLUTE BASOPHILS 0.1 thou/uL (0.0-0.2); ABSOLUTE EOSINOPHILS 0.2 thou/uL (0.0-0.7); ABSOLUTE LYMPHOCYTES 1.3 thou/uL (0.8-5.3); ABSOLUTE MONOCYTES 0.4 thou/uL (0.0-1.2); ABSOLUTE NEUTROPHILS 3.8 thou/uL (1.6-8.1); BASOPHILS 1.1 %; EOSINOPHILS 2.7 %; HEMATOCRIT 49.7 % (42.0-52.0); HEMOGLOBIN 17.2 gm/dL (14.0-18.0); MCH 29.8 pg (26.0-34.0); MCHC 34.5 g/dL (28.0-37.0); MCV 86.4 fL (80.0-100.0); MONOCYTES 7.7 %; NUCLEATED RBCS 0 /100WBC; PLATELET COUNT* 126 thou/uL (150-400); POLYS 65.5 %; RBC 5.76 mil/uL (4.50-6.00); RDW-CV 14.7 % (10.5-14.5); WBC 5.8 thou/uL (4.0-11.0)
[2020-12-05 20:26] LABS: CALCIUM 8.8 mg/dL (8.5-10.1); CREATININE 1.2 mg/dL (0.6-1.3); POTASSIUM 4.3 mmol/L (3.5-5.1)
[2020-12-05 20:27] LABS: APTT 26.2 Seconds (25.0-31.3); PROTIME 10.4 Seconds (9.20-11.50)
[2020-12-05 20:31] LABS: ALBUMIN 3.8 g/dL (3.4-5.0); TOTAL BILIRUBIN 0.4 mg/dL (<0.1-1.0); TOTAL PROTEIN 7.2 g/dL (6.4-8.2)
[2020-12-05] MEDS ORDERED: VISTARIL 25 MG25 M1 PO (22:46)
[2020-12-05 23:13] VITALS: BP 113/57
--- NOTE | 2020-12-06 13:49 | EKG ---
[place] [address] ELECTROCARDIOGRAM REPORT Name: SCOTT LEIGH Room: [facility]#: [id number] Admission: 12/05/20 Attend Phys: Discharge: 12/05/20 Date of : 64 Date of Service: 12/05/201803 Report #: [id number] THIS REPORT FOR: //name// [facility] ED Test Date: 2020-12-05 Test Time: 18:04:31 Pat Name: SCOTT LEIGH Department: Room: Gender: Human Resources Associate: : 1960 Requested By: Alejandro Lerma Order Number: [id number] MD: Jeronimo Snow Measurements Intervals [place] Rate: 75 P: 45 [place]: 139 QRS: 66 QRSD: 110 T: 16 QT: 367 QTc: 410 Interpretive Statements Sinus rhythm Borderline T abnormalities, inferior leads Baseline wander in lead(s) I,II,III,aVR,aVF Compared to ECG 03/22/2020 12:37:24 Sinus tachycardia no longer present T-wave abnormality still present Electronically Signed On 12-06-2020 13:49:38 CDT by Jeronimo Snow [email or web address] <ELECTRONICALLY SIGNED> By: Jeronimo Snow MD, FAC 12/06/20 1349 1804 1804 Jeronimo Snow MD, FAC /EPI
== END 2020-12-05 23:14 | disposition home or self-care (01) ==
LOC: M.ERS 17:59
PROVIDERS: Nurse Practitioner Psychiatric/Mental Health
DX: F41.9 Anxiety disorder, unspecified (principal); R07.89 Other chest pain; Z87.442 Personal history of urinary calculi; Z86.711 Personal history of pulmonary embolism; Z85.828 Personal history of other malignant neoplasm of skin; Z79.899 Other long term (current) drug therapy